=== PATIENT | male | born 1960 | race Caucasian/White ===

== ENCOUNTER → 2017-01-28 | Day surgery (SDC) | payer OTHER ==
[2017-01-28 08:36] LABS: HCT 37.6 % (42.0-52.0); HGB 12.5 g/dl (13.2-18.0); MCH 28.8 pg (25.0-31.0); MCHC 33.2 g/dL (32.0-36.0); MCV 86.6 fL (78.0-100.0); MPV 10.3 fL (6.0-9.5); RBC 4.34 M/uL (4.70-6.00); RDW 16.1 % (11.5-14.0); WBC 4.3 K/uL (4.0-10.5)
[2017-01-28 08:56] LABS: ALBUMIN 4.2 g/dL (3.5-5.0); BILIRUBIN - TOTAL 0.5 mg/dL (0.1-1.0); CREATININE 1.2 mg/dL (0.7-1.2); GLOBULIN (CALCULATION) 2.3 g/dL (2.2-4.2); POTASSIUM 4.4 mmol/L (3.5-5.1); TOTAL PROTEIN 6.5 g/dL (6.4-8.3)
== END | disposition home or self-care (01) ==
LOC: FAS 08:32
PROVIDERS: Surgery
DX: K64.1 Second degree hemorrhoids (principal); K64.5 Perianal venous thrombosis; I10 Essential (primary) hypertension; I25.2 Old myocardial infarction; I25.10 Atherosclerotic heart disease of native coronary artery without angina pectoris; E78.00 Pure hypercholesterolemia, unspecified; F17.290 Nicotine dependence, other tobacco product, uncomplicated; D64.9 Anemia, unspecified; Z90.49 Acquired absence of other specified parts of digestive tract; Z98.52 Vasectomy status; Z87.442 Personal history of urinary calculi; Z79.82 Long term (current) use of aspirin; Z79.899 Other long term (current) drug therapy; Z98.890 Other specified postprocedural states
CPT/HCPCS: 36415; 80053; 88304; J1100; J2405; J2704; J3010

== ENCOUNTER → 2021-12-30 | Day surgery (SDC) | payer OTHER ==
[~2021-12-30] VITALS: Ht 185.4 cm; Wt 113.5 kg
[~2021-12-30] MED LIST: ASPIRIN EC81 MG PO; ATORVASTATIN CA80 MG PO; LOPRESSOR25 MG PO; MOBIC7.5 MG PO; NORCO 5-325 TA1 EACH PO; PLAVIX75 MG PO; PRINIVIL10 MG PO
[2021-12-30 08:23] LABS: HCT 47.6 % (42.0-52.0); HGB 16.1 g/dl (13.2-18.0); MCHC 33.8 g/dL (32.0-36.0); MCV 91.5 fL (78.0-100.0); MPV 10.1 fL (6.0-9.5); RBC 5.2 M/uL (4.70-6.00); RDW 12.5 % (11.5-14.0); WBC 5.9 K/uL (4.0-10.5)
[2021-12-30 08:42] LABS: ALBUMIN 3.4 g/dL (3.4-5.0); BILIRUBIN - TOTAL 0.6 mg/dL (0.2-1.0); BUN/CREAT RATIO (CALC) 9.3 RATIO; CREATININE 1.08 mg/dL (0.67-1.17); GLOBULIN (CALCULATION) 3.7 g/dL; POTASSIUM 4.1 mmol/L (3.5-5.1); TOTAL PROTEIN 7.1 g/dL (6.4-8.2)
== END | disposition home or self-care (01) ==
LOC: FAS 07:52
PROVIDERS: Surgery
DX: L72.0 Epidermal cyst (principal)
CPT/HCPCS: 36415; 80053; J2405; J2704; J3010; J7120